=== PATIENT | female | born 2000 | race African-American/Black ===

== ENCOUNTER 2020-07-16 13:55 | Inpatient (IN) ==
[2020-07-16 14:55] LABS: Urine Appearance Cloudy; Urine Bilirubin Negative (Negative); Urine Blood 2+ (Negative); Urine Color Yellow; Urine Glucose Negative (Negative); Urine Ketones Negative (Negative); Urine Nitrite Negative (Negative); Urine Protein Negative (Negative); Urine Specific Gravity 1.025 (1.010-1.030); Urine Urobilinogen Negative (Negative)
[2020-07-16 15:00] LABS: ABS Eosinophils 0.1 10^3/ul (0-0.6); ABS Lymphocytes 1.5 10^3/ul (1.0-4.8); ABS Monocytes 0.4 10^3/ul (0-0.8); ABS Neutrophils 3.9 10^3/ul (1.5-7.7); Eosinophil % 1.2 %; Hematocrit 37 % (35-47); Hemoglobin 13.1 g/dL (12.0-16.0); Lymphocyte % 26.1 %; Mean Corpuscular HGB Conc 35 g/dL (31-36); Mean Corpuscular Hemoglobin 32 pg (27-31); Mean Corpuscular Volume 91 fL (80-97); Mean Platelet Volume 6.9 fL (7.4-10.4); Platelet Count 325 10^3/uL (150-450); Red Cell Distribution Width 13 % (10-15); White Blood Count 5.9 10^3/uL (3.5-10.8)
[2020-07-16 15:03] LABS: Urine Bacteria Absent (Absent); Urine Red Blood Cell Trace(0-2/hpf) (Absent); Urine Squamous Epithelial Cell Present (Absent); Urine White Blood Cell Trace(0-5/hpf) (Absent)
[2020-07-16 15:41] LABS: Urine Benzodiazepine Screen None Detected (None Detect); Urine Cannabinoids Screen Presumptive Positive (None Detect); Urine Opiates Screen None Detected (None Detect)
[2020-07-16 15:42] LABS: ALT 12 U/L (7-52); AST 23 U/L (13-39); Albumin 4.6 g/dL (3.2-5.2); Albumin/Globulin Ratio 1.7 (1-3); Alkaline Phosphatase 45 U/L (34-104); Anion Gap 9 mmol/L (2-11); BUN/Creatinine Ratio 13.5 (8-20); Blood Urea Nitrogen 12 mg/dL (6-24); CO2 Carbon Dioxide 24 mmol/L (22-32); Calcium 9.5 mg/dL (8.6-10.3); Chloride 106 mmol/L (101-111); EGFR African American 96.9 (>60); EGFR Non-African American 80.1 (>60); Globulin 2.7 g/dL (2-4); Glucose 90 mg/dL (70-100); Potassium 3.8 mmol/L (3.5-5.0); Sodium 139 mmol/L (135-145); Total Protein 7.3 g/dL (6.4-8.9)
[2020-07-16 15:46] LABS: Acetaminophen < 15 mcg/mL; Alcohol, S < 10 mg/dL (<10); Salicylate < 2.50 mg/dL (<30)
[2020-07-16 15:49] LABS: TSH Ultra Thyroid Stim Horm 1.39 mcIU/mL (0.34-5.60)
[2020-07-16] MEDS ORDERED: Al Hydrox/Mg Hydrox/Simet LIQ 30 ML UDC PO PRN (16:38)
[2020-07-17] MEDS: NORETHINDRONE ETHIN ESTRADIOL PO SCH (08:50)
[2020-07-17] MEDS ORDERED: Influenza VAC *QUAD* 2020-21* 0.5 ML SYRINGE IM ONE (09:00)
[2020-07-17] MEDS ORDERED: NORETHINDRONE ETHIN ESTRADIOL PO SCH (09:00)
[2020-07-18] MEDS: NORETHINDRONE ETHIN ESTRADIOL PO SCH (08:17)
[2020-07-19] MEDS: NORETHINDRONE ETHIN ESTRADIOL PO SCH (08:20)
[2020-07-20] MEDS: NORETHINDRONE ETHIN ESTRADIOL PO SCH (08:28)
[2020-07-20 08:34] VITALS: BP 116/62
[2020-07-20] MEDS ORDERED: Lithium Carbonate ER 450mg TAB PO SCH (21:00)
== END 2020-07-20 09:40 | disposition home or self-care (01) | DRG 753 ==
LOC: ED 13:55 → BSU 16:38 → ED 18:23
PROVIDERS: ADMIT Psychiatry & Neurology Psychiatry; ATTEND Psychiatry & Neurology Psychiatry

== ENCOUNTER 2021-05-21 15:28 | Inpatient (IN) ==
[2021-05-21 17:23] LABS: ABS Eosinophils 0.1 10^3/ul (0-0.6); ABS Lymphocytes 1.4 10^3/ul (1.0-4.8); ABS Monocytes 0.5 10^3/ul (0-0.8); ABS Neutrophils 5.2 10^3/ul (1.5-7.7); Eosinophil % 1.2 %; Hematocrit 40 % (35-47); Hemoglobin 13.7 g/dL (12.0-16.0); Lymphocyte % 19.4 %; Mean Corpuscular HGB Conc 34 g/dL (31-36); Mean Corpuscular Hemoglobin 32 pg (27-31); Mean Corpuscular Volume 95 fL (80-97); Mean Platelet Volume 7.3 fL (7.4-10.4); Platelet Count 308 10^3/uL (150-450); Red Blood Count 4.26 10^6 /uL (3.70-4.87); Red Cell Distribution Width 12 % (10-15); White Blood Count 7.2 10^3/uL (3.5-10.8)
[2021-05-21 17:42] LABS: ALT 14 U/L (7-52); AST 17 U/L (13-39); Albumin 4.2 g/dL (3.2-5.2); Albumin/Globulin Ratio 1.4 (1-3); Alkaline Phosphatase 44 U/L (35-149); Anion Gap 4 mmol/L (2-11); Blood Urea Nitrogen 7 mg/dL (6-24); CO2 Carbon Dioxide 28 mmol/L (22-32); Calcium 9.2 mg/dL (8.6-10.3); Chloride 108 mmol/L (101-111); EGFR African American 86.9 (>60); EGFR Non-African American 71.8 (>60); Globulin 2.9 g/dL (2-4); Glucose 87 mg/dL (70-100); Potassium 3.9 mmol/L (3.5-5.0); Sodium 140 mmol/L (135-145); Total Protein 7.1 g/dL (6.4-8.9)
[2021-05-21 17:43] LABS: Urine Appearance Clear; Urine Bilirubin Negative (Negative); Urine Blood 2+ (Negative); Urine Color Yellow; Urine Glucose Negative (Negative); Urine Ketones Negative (Negative); Urine Nitrite Negative (Negative); Urine Protein Negative (Negative); Urine Specific Gravity 1.015 (1.002-1.030); Urine Urobilinogen Negative (Negative)
[2021-05-21 17:54] LABS: Urine Bacteria Absent (Absent); Urine Red Blood Cell Trace(0-2/hpf) (Absent); Urine Squamous Epithelial Cell Present (Absent); Urine White Blood Cell Trace(0-5/hpf) (Absent)
[2021-05-21 18:09] LABS: Acetaminophen < 15 mcg/mL; Alcohol, S < 10 mg/dL (<10); Lithium 0.18 mmol/L (0.6-1.2); Salicylate < 2.50 mg/dL (<30)
[2021-05-21 18:12] LABS: Urine Benzodiazepine Screen None Detected (None Detect); Urine Cannabinoids Screen Presumptive Positive (None Detect); Urine Opiates Screen None Detected (None Detect)
[2021-05-21 18:24] LABS: TSH Ultra Thyroid Stim Horm 0.78 mcIU/mL (0.34-5.60)
[2021-05-21 21:22] LABS: Rapid COVID-19 Molecular Undetected (Undetected)
[2021-05-21] MEDS ORDERED: Al Hydrox/Mg Hydrox/Simet LIQ 30 ML UDC PO PRN (21:33)
[2021-05-21] MEDS ORDERED: Lithium Carbonate ER 450mg TAB PO SCH (22:00)
[2021-05-22 11:30] LABS: HCG Pregnancy < 0.60 mIU/mL
[2021-05-22] MEDS: Vitamin THERAPEUTIC TAB PO SCH (11:41)
[2021-05-22] MEDS: NORGESTIMATE ETHINYL ESTRADIOL PO SCH (15:32)
[2021-05-23] MEDS: Vitamin THERAPEUTIC TAB PO SCH (08:11)
[2021-05-23] MEDS: NORGESTIMATE ETHINYL ESTRADIOL PO SCH (08:12)
[2021-05-23 08:20] LABS: HDL Cholesterol 80.8 mg/dL
[2021-05-23 12:05] LABS: Hepatitis B Surface Antigen Nonreactive (Nonreactive)
[2021-05-23 12:10] LABS: Hepatitis A Ab IgM Negative (Negative); Hepatitis B Core IgM Nonreactive (Nonreactive)
[2021-05-23 12:13] LABS: HIV 4th Generation Nonreactive (Nonreactive)
[2021-05-23 12:22] LABS: Hepatitis C Antibody Negative (Negative)
[2021-05-24] MEDS: Vitamin THERAPEUTIC TAB PO SCH (07:56)
[2021-05-24] MEDS: NORGESTIMATE ETHINYL ESTRADIOL PO SCH (07:56)
[2021-05-24 08:02] VITALS: BP 113/69
[2021-05-24 13:20] LABS: Chlamydia trachomatis NAA Positive (Negative); Neisseria gonorrhoeae (GC) NAA Negative (Negative)
== END 2021-05-24 13:15 | disposition home or self-care (01) | DRG 753 ==
LOC: ED 15:28 → BSU 20:43
PROVIDERS: ADMIT Psychiatry & Neurology Psychiatry; ATTEND Psychiatry & Neurology Psychiatry